=== PATIENT | male | born 2000 | race Caucasian/White ===

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

== ENCOUNTER 2019-09-02 00:58 | Emergency (ER) | payer OTHER | END 2019-09-02 03:05 | disposition left against medical advice (07) | LOC: EMS 00:58 | DX: J11.1 Influenza due to unidentified influenza virus with other respiratory manifestations (principal); Z53.21 Procedure and treatment not carried out due to patient leaving prior to being seen by health care provider ==

== ENCOUNTER 2022-01-06 01:58 | Emergency (ER) | payer OTHER ==
[~2022-01-06] VITALS: Ht 180.3 cm; Wt 145.0 kg
[2022-01-06] MEDS ORDERED: IBUP-1554 PO (03:44)
[2022-01-06] MEDS ORDERED: ACET-66 PO (03:44)
[2022-01-06] MEDS ORDERED: PENI500T2 PO (03:44)
[2022-01-06] MEDS ORDERED: IBUPROFEN 600 MG TABLET PO ONE (03:45)
[2022-01-06 05:00] VITALS: BP 132/74
== END 2022-01-06 06:04 | disposition home or self-care (01) ==
LOC: EMS 02:02
DX: K04.7 Periapical abscess without sinus (principal); K08.89 Other specified disorders of teeth and supporting structures; L02.92 Furuncle, unspecified
CPT/HCPCS: 99283

== ENCOUNTER 2022-01-14 17:15 | Emergency (ER) | payer OTHER ==
[~2022-01-14] VITALS: Ht 177.8 cm; Wt 145.4 kg
[~2022-01-14 17:15] MED LIST: ACET-66 PO; IBUP-1554 PO; PENI500T2 PO
[2022-01-14 17:19] VITALS: BP 162/96
[2022-01-14] MEDS ORDERED: KETOROLAC TROMETHAMINE 60 MG/2 ML VIAL IM ONE (18:15)
[2022-01-14] MEDS ORDERED: HYDROCODONE/ACETAMINOPHEN 5-325 MG TABLET PO ONE (18:15)
[2022-01-14] MEDS ORDERED: IBUP-1554 PO (18:50)
[2022-01-14] MEDS ORDERED: PENI500T2 PO (18:50)
[2022-01-14] MEDS ORDERED: HYDR-4723 PO (18:50)
[2022-01-14] MEDS ORDERED: HYDR-4072 PO (20:37)
== END 2022-01-14 19:01 | disposition home or self-care (01) ==
LOC: EMS 17:38
DX: K08.89 Other specified disorders of teeth and supporting structures (principal); K02.9 Dental caries, unspecified
CPT/HCPCS: 96372; 99283; J1885

== ENCOUNTER 2022-10-12 03:56 | Emergency (ER) | payer OTHER ==
[~2022-10-12] VITALS: Ht 177.8 cm; Wt 140.9 kg
[~2022-10-12 03:56] MED LIST changes: +HYDR-4072 PO; +HYDR-4723 PO
[2022-10-12 04:18] LABS: COVID AG,FIA SOURCE NASAL SWAB
[2022-10-12] MEDS ORDERED: AMOX250C4 PO (04:39)
[2022-10-12 04:48] LABS: INFLUENZA TYPE A NEGATIVE FOR TYPE A (NEGATIVE); INFLUENZA TYPE B NEGATIVE FOR TYPE B (NEGATIVE)
[2022-10-12 05:59] VITALS: BP 141/90
== END 2022-10-12 06:23 | disposition home or self-care (01) ==
LOC: EMS 03:57
DX: H66.91 Otitis media, unspecified, right ear (principal); J06.9 Acute upper respiratory infection, unspecified; Z20.822 Contact with and (suspected) exposure to COVID-19; Z91.030 Bee allergy status
CPT/HCPCS: 87804; 99283

== ENCOUNTER 2024-07-01 02:36 | Emergency (ER) | payer SELFPAY ==
[~2024-07-01] VITALS: Ht 180.3 cm; Wt 145.0 kg
[~2024-07-01 02:36] MED LIST changes: +AMOX250C4 PO; +HYDR-4062 PO; -HYDR-4723 PO
[2024-07-01 02:40] VITALS: BP 121/82; PULSE 94; RESP 16; TEMP 98.2; O2SAT 98
[2024-07-01] MEDS: METHOCARBAMOL 500 MG TABLET PO ONE (03:29)
[2024-07-01] MEDS: KETOROLAC TROMETHAMINE 30 MG/ML VIAL IM ONE (03:30)
[2024-07-01] MEDS: ACETAMINOPHEN 500 MG TABLET PO ONE (03:30)
[2024-07-01] MEDS: LIDOCAINE 5% TRANSDERMAL PATCH TD ONE (03:30)
[2024-07-01] MEDS ORDERED: METH-812 PO (04:11)
== END 2024-07-01 04:26 | disposition home or self-care (01) ==
LOC: EMS 02:36
DX: S39.012A Strain of muscle, fascia and tendon of lower back, initial encounter (principal); Z91.030 Bee allergy status; X58.XXXA Exposure to other specified factors, initial encounter; Y93.89 Activity, other specified; Y92.89 Other specified places as the place of occurrence of the external cause; Y99.8 Other external cause status
CPT/HCPCS: 99284; 96372; J1885

== ENCOUNTER 2024-12-22 00:15 | Emergency (ER) | payer MEDICAID ==
[~2024-12-22] VITALS: Ht 180.3 cm; Wt 147.7 kg
[~2024-12-22 00:15] MED LIST changes: +METH-812 PO
[2024-12-22 00:42] LABS: BASOPHILS % (AUTO) 1.2 % (0.0-2.0); EOSINOPHILS % (AUTO) 2.4 % (1.0-6.0); HEMATOCRIT 45.8 % (41-53); HEMOGLOBIN 15.4 g/dL (13.5-17.5); LYMPHOCYTES # (AUTO) 2.7 K/uL (1.0-4.8); LYMPHOCYTES % (AUTO) 32.2 % (22.0-44.0); MEAN CORPUSCULAR HEMOGLOBIN 30.1 pg (26.0-34.0); MEAN CORPUSCULAR HGB CONC 33.6 G/dL (31.0-37.0); MEAN CORPUSCULAR VOLUME 90 fL (80-100); MONOCYTES # (AUTO) 0.6 K/uL (0.1-1.0); MONOCYTES % (AUTO) 6.7 % (2.0-9.0); NEUTROPHILS # (AUTO) 4.8 K/uL (1.8-7.7); NEUTROPHILS % (AUTO) 57.5 % (40.0-70.0); PLATELET COUNT (AUTO) 181 K/uL (150-450); RED BLOOD CELL COUNT(AUTO) 5.11 MIL/uL (4.50-5.90); WHITE BLOOD COUNT (AUTO) 8.3 K/uL (4.5-11.0)
[2024-12-22 00:58] LABS: ALANINE AMINOTRANSFERASE 119 U/L (12-78); ALBUMIN 3.3 g/dL (3.4-5.0); ALKALINE PHOSPHATASE 71 U/L (46-116); ANION GAP 8 mmol/L (8-16); ASPARTATE AMINOTRANSFERASE 47 U/L (15-37); BILIRUBIN,TOTAL 0.6 mg/dL (0.1-1.0); CALCIUM, TOTAL 8.7 mg/dL (8.8-10.5); CARBON DIOXIDE 31 mmol/L (22-29); CHLORIDE 105 mmol/L (98-107); CREATINE KINASE, TOTAL ONLY 248 U/L (39-308); CREATININE 1.38 mg/dL (0.60-1.30); GLOMERULAR FILTR. RATE CALC > 60 mL/min (>60); GLUCOSE,RANDOM 107 mg/dL (70-110); POTASSIUM 3.7 mmol/L (3.5-5.1); SODIUM SERUM 144 mmol/L (136-145); TOTAL PROTEIN, SERUM 7.3 g/dL (6.4-8.2); UREA NITROGEN, BLOOD 17 mg/dL (7-18)
[2024-12-22 01:01] LABS: ALCOHOL, BLOOD (SERUM) < 3 mg/dL (0-10)
[2024-12-22 01:09] LABS: TROPONIN I-HIGH SENSITIVITY 9 ng/L (<76)
[2024-12-22 01:11] LABS: GLUCOMETER DEV NAME(LOC) AHU.; GLUCOSE,POINT OF CARE 132 MG/DL (70-110)
[2024-12-22 01:40] VITALS: TEMP 98.205296
[2024-12-22 01:57] LABS: COVID AG,FIA SOURCE NASAL SWAB
[2024-12-22 02:10] LABS: SARS-COV2 (COVID) ANTIGEN,FIA Negative (Negative)
[2024-12-22 02:11] LABS: INFLUENZA TYPE A NEGATIVE FOR TYPE A (NEGATIVE); INFLUENZA TYPE B NEGATIVE FOR TYPE B (NEGATIVE)
[2024-12-22 03:16] LABS: TROPONIN I-HIGH SENSITIVITY 8 ng/L (<76)
[2024-12-22 03:37] VITALS: BP 119/73; PULSE 80; RESP 18; O2SAT 98
== END 2024-12-22 03:55 | disposition home or self-care (01) ==
LOC: EMS 00:39
DX: R00.2 Palpitations (principal); R07.9 Chest pain, unspecified; R42 Dizziness and giddiness; Z91.030 Bee allergy status; Z79.899 Other long term (current) drug therapy; Z20.822 Contact with and (suspected) exposure to COVID-19
CPT/HCPCS: 99285; 71045; 87426; 80048; 80076; 82550; 82962; 83735; 84100; 84484; 85025; 87804; 36415; 93005; G0480

== ENCOUNTER 2025-02-18 21:24 | Emergency (ER) | payer MEDICAID, OTHER ==
[~2025-02-18] VITALS: Ht 180.3 cm; Wt 131.8 kg
[2025-02-18 21:35] VITALS: TEMP 98.6
[2025-02-18] MEDS: IBUPROFEN 400 MG TABLET PO ONE (22:40)
[2025-02-18 22:46] VITALS: BP 151/90; PULSE 92; RESP 18; O2SAT 97
== END 2025-02-18 22:48 | disposition home or self-care (01) ==
LOC: EMS 21:24
DX: S43.401A Unspecified sprain of right shoulder joint, initial encounter (principal); R20.2 Paresthesia of skin; Z91.030 Bee allergy status; X50.0XXA Overexertion from strenuous movement or load, initial encounter; Y93.89 Activity, other specified; Y92.89 Other specified places as the place of occurrence of the external cause; Y99.0 Civilian activity done for income or pay
CPT/HCPCS: 99283